=== PATIENT | male | born 1945 | race Caucasian/White ===

== ENCOUNTER 2018-01-07 12:17 | Inpatient (IN) | payer MEDICARE ==
[2018-01-07 13:09] LABS: #Basophils 0.1 thou/uL (0.0-0.2); #Eosinphils 0.3 thou/uL (0.0-0.7); #Lymphocytes 1.1 thou/uL (1.20-3.40); #Monocytes 0.6 thou/uL (0.11-0.59); #Neutrophils 5.1 thou/uL (1.40-6.50); %Basophils 0.8 % (0.0-1.0); %Eosinophils 4.8 % (0.0-10.0); %Lymphocytes 14.7 % (21.0-51.0); %Monocytes 8.8 % (0.0-10.0); %Neutrophils 70.9 % (42.0-75.0); Hemoglobin 14.1 g/dL (14.0-18.0); Mean Corpuscular HGB CONC 31.5 g/dL (32.0-36.0); Mean Corpuscular Hemoglobin 32.1 pg (27.0-31.0); Mean Corpuscular Volume 101.9 fL (78.0-98.0); Mean Platelet Volume 7.4 fL (7.4-10.4); Platelet Count 129 thou/uL (130-400); RBC Distribution Width 13.5 % (11.5-14.5); Red Blood Cell (RBC) Count 4.39 mill/uL (4.70-6.10); White Blood Cell (WBC) Count 7.1 thou/uL (4.8-10.8)
--- NOTE | 2018-01-07 13:13 | RAD ---
PORTABLE AP CHEST XRAY: DATE: 01/07/18. HISTORY: Dyspnea. COMPARISON: 07/27/11. FINDINGS: Dual-lead left subclavian cardiac pacemaking device is noted in place. The patient is rotated to the right accentuating the cardiac silhouette and mediastinal structures. Pulmonary vasculature is with in normal limits and the lungs are clear. IMPRESSION: Limited exam due to patient rotation; no acute cardiopulmonary process is identified. POS: [facility]
[2018-01-07 13:27] LABS: ALT (SGPT) 12 U/L (8-55); AST (SGOT) 11 U/L (5-34); Albumin 4.1 g/dL (3.4-4.8); Alkaline Phosphatase 54 U/L (40-150); Anion Gap 13 mmol/L (10-20); BUN (Urea Nitrogen) 22 mg/dL (8.4-25.7); Bilirubin, Total 0.6 mg/dL (0.2-1.2); Calc. Creatinine Clearance 0 mL/min (70-130); Calcium 9.4 mg/dL (7.8-10.44); Carbon Dioxide 31 mmol/L (23-31); Chloride 105 mmol/L (98-107); Estimated GFR-MDRD 87; Globulin 2.6 g/dL (2.4-3.5); Glucose 134 mg/dL (83-110); Lipase 114 U/L (8-78); Potassium 4.7 mmol/L (3.5-5.1); Protein, Total 6.7 g/dL (5.8-8.1); Sodium 144 mmol/L (136-145)
[2018-01-07 15:34] VITALS: BMI 39.6
[2018-01-07] MEDS ORDERED: Enoxaparin Sodium 40 MG/0.4 ML SYRINGE SC SCH (15:44)
[2018-01-07] MEDS ORDERED: Ondansetron ODT 4 MG TAB PO PRN (15:44)
[2018-01-07] MEDS ORDERED: Acetaminophen 325 MG TAB PO PRN (15:44)
[2018-01-07] MEDS ORDERED: Nitroglycerin 0.4 MG TAB (25 Tab Bottle) SL PRN (16:52)
[2018-01-07] MEDS: Glimepiride 2 MG TAB PO SCH (17:55)
--- NOTE | 2018-01-07 19:44 | RAD ---
RIGHT SHOULDER THREE VIEWS: HISTORY: Right shoulder pain after fall. COMPARISON: None. FINDINGS: Three views of the right shoulder show no evidence of acute fracture or dislocation. There are moder ate degenerative changes in the glenohumeral and acromioclavicular joints. The visualized right thor ax is unremarkable. IMPRESSION: Mild right shoulder arthritis without acute osseous abnormality. POS: [facility]
[2018-01-07] MEDS ORDERED: HumaLOG 300 UNITS/3 ML VIAL SC PRN (19:50)
[2018-01-07] MEDS ORDERED: Dextrose 50% Abboject 50 ML SYRINGE SLOW IVP PRN (19:53)
[2018-01-07] MEDS ORDERED: Dextrose 5% in Water 1,000 ML IV PRN (19:55)
[2018-01-07] MEDS: Atorvastatin Calcium 10 MG TAB PO SCH (20:12)
[2018-01-07] MEDS: Mometasone/Formoterol 60 PUFF AER INH SCH (20:13)
[2018-01-07] MEDS: Furosemide 80 MG TAB PO SCH (20:14)
[2018-01-07] MEDS: Tamsulosin HCl 0.4 MG CAP PO SCH (20:14)
[2018-01-07] MEDS: Carvedilol 6.25 MG TAB PO SCH (20:14)
[2018-01-07] MEDS: Lantus 1000 UNITS/10 ML VIAL SC SCH (20:15)
[2018-01-07] MEDS ORDERED: Lantus 1000 UNITS/10 ML VIAL SC SCH (21:00)
[2018-01-07] MEDS ORDERED: Insulin Glargine 25 UNITS in Pre-Filled Syringe 1 EACH SC SCH (21:00)
[2018-01-07] MEDS: Nicotine 21 MG PATCH TOP SCH (22:37)
[2018-01-07] MEDS: Nystatin Cream 15 GM TUBE TOP SCH (22:39)
--- NOTE | 2018-01-08 00:31 | HP ---
DATE OF ADMISSION: 01/07/2018 ATTENDING: Jasmin Varela M.D. CHIEF COMPLAINT: General weakness. HISTORY OF PRESENT ILLNESS: Mr. Kay is a very pleasant 72-year-old male with multiple chronic medical conditions including diabetes, hypertension, and COPD, CAD, history of [place], history of previous stroke, diastolic dysfunction , congestive heart failure, generalized osteoarthritis and blindness in the right eye. The patient reports that he fell last night at home when he was trying to get up from the chair and his right hand missed the edge of the table accidentally and went down to the floor. He stayed in the floor for about 30 minutes lying on the right side position. He has been complaining of right shoulder pain since. He called his son to pick him up from the floor but reports that his son could not pick him up and he could not move at all. They called the EMS afterwards as is concerned of stroke versus seizures. Patient reports no significant tremors or repetitive jerking at all. The patient did not lose consciousness nor reports blacking out. He could recall every single detail of the incident. The patient reports that after EMS came by and evaluated him, they were told that "there is nothing wrong with him" thus option given not to proceed to the ER for further evaluation. The patient then reports that he rested so well that night, but when he gets up this morning, he was very weak with severe right shoulder pain. He reports that he could hardly move his feet, legs or hands, arms at all. was worried that something is going on with him. called the clinic and the patient was recommended to proceed to the ER for further evaluation. Upon evaluation in the ER, I was told by the ER physician Dr. Olsen that patient has severe deconditioned and general weakness. He has left-sided weakness being from previous CVA, but otherwise would not be able to get up out of the bed without max assist.Patient could hardly make it to the standing position. The patient's baseline status: he could transfer himself and ambulatory with a walker at home. Per ER evaluation, no significant acute stroke symptoms localized paralysis or paraesthesia. Routine blood works were unremarkable. EKG was dual paced, otherwise unremarkable. Due to poor social situation, the patient was deemed to benefit for further therapy and observation in the hospital before going back to the home environment thus admitted. PAST MEDICAL HISTORY: Hypertension; dyslipidemia; CAD; hypothyroid; previous CVA with left residual hemiparesis, COPD; neuropathy; coronary artery disease; myocardial infarction, status post stent placement; [place] x2 treated with pacemaker ; hypertension; diabetes; previous smoker; neuropathic pain; diastolic dysfunction; deviated septum; bilateral carpal tunnel syndrome; PVD; proteinuria ; chronic tobacco abuse; history of testicular cancer, Dr. Cayden Souza in 2015; blind in the right eye; DJD lumbar; restless legs syndrome. PAST SURGICAL HISTORY: Stent in 04/2008, stents 07/29/2011, pacemaker. FAMILY HISTORY: Mother still alive at 89 years of age with lung, heart, high blood pressure. Siblings diagnosed with minor heart problems, cholesterol, diabetes. SOCIAL HISTORY: The patient is . Denies alcohol intake. Chronic smoker for more than 50 years. The patient smokes 2 packs per day. Denies illicit drug use. ALLERGIES: LATEX. REVIEW OF SYSTEMS: General: Denies fever or chills. Reports fatigue, general weakness. HEENT: Denies headaches, acute visual changes or hearing changes or cold symptoms. Respiratory: Reports chronic intermittent shortness of breath and wheezing. Otherwise, no active breathing issues. No sputum production and cough. Cardiovascular: Denies active chest pain, pain with breathing, orthopnea, paroxysmal nocturnal dyspnea, dyspnea on exertion. GI: No nausea, vomiting, abdominal pain, diarrhea or constipation. Genitourinary: No dysuria , hematuria, frequency, urgency. Continent of bowel and bladder. Musculoskeletal: Reports intermittent joint pains. No significant swelling, joint effusion or redness. Positive myalgia. Neuro: As per HPI. LABORATORY DATA AND X-RAY FINDINGS: Chest x-ray negative. A 12 lead EKG: AV dual paced 60 beats per minute, LAD, QRS 162, QTC 508, nonspecific changes. WBC 7.1, hemoglobin 14.1, hematocrit 44.7, MCV 101.9, platelets 129. Chemistry : Sodium 144, potassium 4.7, BUN 22, creatinine 0.86, estimated GFR 87, glucose 134, calcium 19.4. LFTs within normal limits. Troponin less than 0.10. Beta natriuretic 39.9, albumin 4.1, lipase 114. PHYSICAL EXAMINATION: VITAL SIGNS: Blood pressure 149/65, temperature 98.1, pulse 67, respirations 24 , O2 sats 95% at room air, weight 276 pounds and 4 ounces, height 5 feet 10 inches. GENERAL: The patient is awake, alert, oriented x3, not in distress, comfortable in exam. No signs of agony. HEENT: Normocephalic, atraumatic. PERRL intact, EOM. Anicteric sclera. Oral mucosa is moist. NECK: Supple. No LAD, no JVD, no bruit. CHEST: Nonlabored breathing, normal excursion. LUNGS: Good air entry bilaterally. Clear to auscultation bilaterally. No rales, no crackles, no wheezes, no rhonchi. CARDIOVASCULAR: RRR. Normal S1 and S2. No murmurs. ABDOMEN: Obese, soft, normoactive bowel sounds, nondistended, nontender, no rebound, no guarding. Negative CVA tenderness bilaterally. EXTREMITIES: Lower extremities: bipedal edema with chronic skin changes consistent with venous stasis. Dry and scaly. No joint effusions. No joint erythema, no joint swelling. Tender anterior shoulder on direct palpation. Limited range of motion of the right shoulder secondary to discomfort/pain. NEUROLOGIC: DTRs 2+. Nonfocal. Speech is spontaneous. No motor deficits. Gait unsteady. ASSESSMENT AND PLAN: A 72-year-old with history of multiple chronic medical conditions, previous cerebrovascular accident leaving with mild left motor weakness, and unsteady gait. Uses rolling walker for ambulation at home. The patient reports slowly worsening ability to ambulate for the past several months , had a fall yesterday without significant obvious injury noted. Now, he is barely able to walk with a walker, complaining of general weakness and some right shoulder pain. Lab studies were unremarkable. is unable to take care of patient at home at this time, due to apparent higher level of care needed. The patient was admitted for severe deconditioning and general weakness. He needs therapy to improve ambulatory status, gait training, strengthening and exercises to be able to be able to make it back to at least baseline functional status . We will obtain x-ray of the right shoulder to rule out fracture dislocation secondary to acute pain status post fall. PT, OT evaluation and treat. Continue all current medications as modified per list. Accu-Chek q.a.c. and at bedtime. Activate hypoglycemic protocol. DIET: Diabetic, AHA. ACTIVITY: To be determined by PT. Gastrointestinal prophylaxis with Protonix. Deep venous thrombosis prophylaxis with Lovenox. Estimated length of stay 2-3 days, then possibly transition to skilled rehabilitation. CODE STATUS: The patient reports CPR only, DO NOT INTUBATE. MTDD
[2018-01-08] MEDS: Furosemide 80 MG TAB PO SCH ×2 (10:46→17:39)
[2018-01-08] MEDS: Gabapentin 300 MG CAP PO SCH (10:46)
[2018-01-08] MEDS: Levothyroxine Sodium 50 MCG TAB PO SCH (10:46)
[2018-01-08] MEDS: Carvedilol 6.25 MG TAB PO SCH ×2 (10:47→20:09)
[2018-01-08] MEDS: Mometasone/Formoterol 60 PUFF AER INH SCH ×2 (10:47→18:22)
[2018-01-08] MEDS: Spironolactone 25 MG TAB PO SCH (10:47)
[2018-01-08] MEDS: Glimepiride 2 MG TAB PO SCH ×2 (10:47→17:39)
[2018-01-08] MEDS: Nystatin Cream 15 GM TUBE TOP SCH ×2 (10:48→20:11)
[2018-01-08] MEDS: HumaLOG 300 UNITS/3 ML VIAL SC PRN ×2 (13:10→17:15)
[2018-01-08] MEDS: Atorvastatin Calcium 10 MG TAB PO SCH (20:09)
[2018-01-08] MEDS: Tamsulosin HCl 0.4 MG CAP PO SCH (20:10)
[2018-01-08] MEDS: Nicotine 21 MG PATCH TOP SCH (20:12)
[2018-01-08] MEDS: Lantus 1000 UNITS/10 ML VIAL SC SCH (20:17)
[2018-01-08] MEDS ORDERED: Nystatin Cream 15 GM TUBE TOP SCH (21:00)
[2018-01-09] MEDS: Levothyroxine Sodium 50 MCG TAB PO SCH (05:48)
[2018-01-09] MEDS: Mometasone/Formoterol 60 PUFF AER INH SCH ×2 (07:58→18:29)
[2018-01-09] MEDS: Glimepiride 2 MG TAB PO SCH ×2 (08:01→17:09)
[2018-01-09] MEDS: Furosemide 80 MG TAB PO SCH ×2 (08:02→17:10)
[2018-01-09] MEDS: Gabapentin 300 MG CAP PO SCH (08:02)
[2018-01-09] MEDS: Carvedilol 6.25 MG TAB PO SCH ×2 (08:02→20:19)
[2018-01-09] MEDS: Nystatin Cream 15 GM TUBE TOP SCH ×2 (08:03→20:51)
[2018-01-09] MEDS: Spironolactone 25 MG TAB PO SCH (08:04)
[2018-01-09] MEDS: HumaLOG 300 UNITS/3 ML VIAL SC PRN ×2 (08:19→11:29)
[2018-01-09] MEDS ORDERED: Aspirin 325 MG TAB PO SCH (12:00)
[2018-01-09] MEDS: Atorvastatin Calcium 10 MG TAB PO SCH (20:18)
[2018-01-09] MEDS: Tamsulosin HCl 0.4 MG CAP PO SCH (20:19)
[2018-01-09] MEDS: Nicotine 21 MG PATCH TOP SCH (20:20)
[2018-01-09] MEDS: Lantus 1000 UNITS/10 ML VIAL SC SCH (20:32)
[2018-01-10] MEDS: Levothyroxine Sodium 50 MCG TAB PO SCH (07:01)
[2018-01-10] MEDS: Mometasone/Formoterol 60 PUFF AER INH SCH ×2 (08:50→17:28)
[2018-01-10] MEDS: Spironolactone 25 MG TAB PO SCH (08:52)
[2018-01-10] MEDS: Glimepiride 2 MG TAB PO SCH ×2 (08:52→17:28)
[2018-01-10] MEDS: Aspirin 325 MG TAB PO SCH (08:52)
[2018-01-10] MEDS: Gabapentin 300 MG CAP PO SCH (08:52)
[2018-01-10] MEDS: Carvedilol 6.25 MG TAB PO SCH ×2 (08:52→21:34)
[2018-01-10] MEDS: Furosemide 80 MG TAB PO SCH ×2 (08:52→17:28)
[2018-01-10] MEDS: Nystatin Cream 15 GM TUBE TOP SCH ×2 (08:53→21:35)
[2018-01-10] MEDS: HumaLOG 300 UNITS/3 ML VIAL SC PRN (11:30)
[2018-01-10] MEDS: Atorvastatin Calcium 10 MG TAB PO SCH (21:33)
[2018-01-10] MEDS: Nicotine 21 MG PATCH TOP SCH (21:35)
[2018-01-10] MEDS: Lantus 1000 UNITS/10 ML VIAL SC SCH (21:35)
[2018-01-10] MEDS: Tamsulosin HCl 0.4 MG CAP PO SCH (21:36)
[2018-01-11] MEDS: Levothyroxine Sodium 50 MCG TAB PO SCH (06:08)
[2018-01-11] MEDS: Mometasone/Formoterol 60 PUFF AER INH SCH (06:09)
[2018-01-11] MEDS: Glimepiride 2 MG TAB PO SCH (08:59)
[2018-01-11] MEDS: Carvedilol 6.25 MG TAB PO SCH (08:59)
[2018-01-11] MEDS: Aspirin 325 MG TAB PO SCH (08:59)
[2018-01-11] MEDS: Spironolactone 25 MG TAB PO SCH (08:59)
[2018-01-11] MEDS: Furosemide 80 MG TAB PO SCH (09:02)
[2018-01-11] MEDS: Gabapentin 300 MG CAP PO SCH (09:02)
[2018-01-11] MEDS: Nystatin Cream 15 GM TUBE TOP SCH (09:03)
[2018-01-11 11:46] VITALS: BP 138/62; TEMP 97.1
== END 2018-01-11 12:52 | disposition swing bed (61) | DRG 948 ==
LOC: MADERS 12:17 → MADMS 14:29
PROVIDERS: ADMIT Family Medicine; ATTEND Family Medicine
DX: R53.1 Weakness (principal); I50.32 Chronic diastolic (congestive) heart failure; I69.354 Hemiplegia and hemiparesis following cerebral infarction affecting left non-dominant side; E11.9 Type 2 diabetes mellitus without complications; J44.9 Chronic obstructive pulmonary disease, unspecified; I25.10 Atherosclerotic heart disease of native coronary artery without angina pectoris; I25.2 Old myocardial infarction; I11.0 Hypertensive heart disease with heart failure; M19.90 Unspecified osteoarthritis, unspecified site; H54.40 Blindness, one eye, unspecified eye; E78.5 Hyperlipidemia, unspecified; Z95.0 Presence of cardiac pacemaker; F17.210 Nicotine dependence, cigarettes, uncomplicated; Z85.47 Personal history of malignant neoplasm of testis; M47.896 Other spondylosis, lumbar region; Z91.81 History of falling; Z66 Do not resuscitate; M25.511 Pain in right shoulder
CPT/HCPCS: 36415; 36416; 71045; 80053; 83690; 83880; 84484; 85025; 93005; 94664; G8987-GO-CM; G8988-GO-CI; J1650; J1815

== ENCOUNTER 2018-01-11 13:10 | Inpatient (IN) | payer MEDICARE ==
[2018-01-11] MEDS: HumaLOG 300 UNITS/3 ML VIAL SC PRN ×2 (13:10→18:54)
[2018-01-11 13:33] VITALS: BMI 39.6
[2018-01-11] MEDS ORDERED: Nitroglycerin 0.4 MG TAB (25 Tab Bottle) SL PRN (15:37)
[2018-01-11] MEDS ORDERED: Ondansetron ODT 4 MG TAB PO PRN (15:37)
[2018-01-11] MEDS ORDERED: Dextrose 50% Abboject 50 ML SYRINGE SLOW IVP PRN (15:40)
[2018-01-11] MEDS ORDERED: Dextrose 5% in Water 1,000 ML IV PRN (15:40)
[2018-01-11] MEDS: Nicotine 21 MG PATCH TOP SCH (17:11)
[2018-01-11] MEDS ORDERED: Glimepiride 2 MG TAB PO SCH ×2 (17:15→18:00)
[2018-01-11] MEDS: Mometasone/Formoterol 60 PUFF AER INH SCH (18:54)
[2018-01-11] MEDS ORDERED: Mometasone/Formoterol 60 PUFF AER INH SCH (19:00)
[2018-01-11] MEDS: Atorvastatin Calcium 10 MG TAB PO SCH (22:00)
[2018-01-11] MEDS: Carvedilol 6.25 MG TAB PO SCH (22:01)
[2018-01-11] MEDS: Furosemide 80 MG TAB PO SCH (22:01)
[2018-01-11] MEDS: Lantus 1000 UNITS/10 ML VIAL SC SCH (22:02)
[2018-01-11] MEDS: Nystatin Cream 15 GM TUBE TOP SCH (22:03)
[2018-01-11] MEDS: Tamsulosin HCl 0.4 MG CAP PO SCH (22:04)
[2018-01-12] MEDS: Levothyroxine Sodium 50 MCG TAB PO SCH (05:06)
[2018-01-12] MEDS: Mometasone/Formoterol 60 PUFF AER INH SCH ×2 (06:02→18:33)
[2018-01-12] MEDS: Aspirin 325 mg Enteric Coated Tablet PO SCH (08:52)
[2018-01-12] MEDS: Spironolactone 25 MG TAB PO SCH (08:52)
[2018-01-12] MEDS: Gabapentin 300 MG CAP PO SCH (08:52)
[2018-01-12] MEDS: Glimepiride 2 MG TAB PO SCH ×2 (08:52→16:28)
[2018-01-12] MEDS: Carvedilol 6.25 MG TAB PO SCH ×2 (08:52→21:03)
[2018-01-12] MEDS: Furosemide 80 MG TAB PO SCH ×2 (08:52→21:03)
[2018-01-12] MEDS: Enoxaparin Sodium 40 MG/0.4 ML SYRINGE SC SCH (08:52)
[2018-01-12] MEDS: Nystatin Cream 15 GM TUBE TOP SCH ×2 (08:53→21:04)
[2018-01-12] MEDS: Nicotine 21 MG PATCH TOP SCH (16:28)
[2018-01-12] MEDS: Atorvastatin Calcium 10 MG TAB PO SCH (21:03)
[2018-01-12] MEDS: Lantus 1000 UNITS/10 ML VIAL SC SCH (21:04)
[2018-01-12] MEDS: Tamsulosin HCl 0.4 MG CAP PO SCH (21:05)
[2018-01-12] MEDS: HumaLOG 300 UNITS/3 ML VIAL SC PRN (21:07)
[2018-01-13] MEDS: Acetaminophen 325 MG TAB PO PRN (00:26)
[2018-01-13] MEDS: Levothyroxine Sodium 50 MCG TAB PO SCH (05:06)
[2018-01-13] MEDS: Mometasone/Formoterol 60 PUFF AER INH SCH ×2 (06:16→19:28)
[2018-01-13] MEDS: Glimepiride 2 MG TAB PO SCH ×2 (07:33→16:59)
[2018-01-13] MEDS: Enoxaparin Sodium 40 MG/0.4 ML SYRINGE SC SCH (08:40)
[2018-01-13] MEDS: Furosemide 80 MG TAB PO SCH ×2 (08:41→16:59)
[2018-01-13] MEDS: Gabapentin 300 MG CAP PO SCH (08:41)
[2018-01-13] MEDS: Aspirin 325 mg Enteric Coated Tablet PO SCH (08:41)
[2018-01-13] MEDS: Nystatin Cream 15 GM TUBE TOP SCH ×2 (08:41→21:03)
[2018-01-13] MEDS: Carvedilol 6.25 MG TAB PO SCH ×2 (08:41→21:02)
[2018-01-13] MEDS: Spironolactone 25 MG TAB PO SCH (08:41)
[2018-01-13] MEDS: HumaLOG 300 UNITS/3 ML VIAL SC PRN ×2 (11:41→21:04)
[2018-01-13] MEDS: Nicotine 21 MG PATCH TOP SCH (16:23)
[2018-01-13] MEDS: Lantus 1000 UNITS/10 ML VIAL SC SCH (21:02)
[2018-01-13] MEDS: Atorvastatin Calcium 10 MG TAB PO SCH (21:02)
[2018-01-13] MEDS: Tamsulosin HCl 0.4 MG CAP PO SCH (21:03)
[2018-01-14] MEDS: Mometasone/Formoterol 60 PUFF AER INH SCH ×2 (06:17→18:26)
[2018-01-14] MEDS: Levothyroxine Sodium 50 MCG TAB PO SCH (06:17)
[2018-01-14] MEDS: Aspirin 325 mg Enteric Coated Tablet PO SCH (08:30)
[2018-01-14] MEDS: Carvedilol 6.25 MG TAB PO SCH ×2 (08:30→20:21)
[2018-01-14] MEDS: Glimepiride 2 MG TAB PO SCH ×2 (08:30→16:43)
[2018-01-14] MEDS: Enoxaparin Sodium 40 MG/0.4 ML SYRINGE SC SCH (08:30)
[2018-01-14] MEDS: Spironolactone 25 MG TAB PO SCH (08:31)
[2018-01-14] MEDS: HumaLOG 300 UNITS/3 ML VIAL SC PRN ×2 (08:31→20:30)
[2018-01-14] MEDS: Furosemide 80 MG TAB PO SCH ×2 (08:31→18:26)
[2018-01-14] MEDS: Gabapentin 300 MG CAP PO SCH (08:31)
[2018-01-14] MEDS: Nystatin Cream 15 GM TUBE TOP SCH ×2 (08:31→20:22)
[2018-01-14] MEDS: Acetaminophen 325 MG TAB PO PRN (10:03)
[2018-01-14] MEDS: Nicotine 21 MG PATCH TOP SCH (16:43)
[2018-01-14] MEDS: Atorvastatin Calcium 10 MG TAB PO SCH (20:21)
[2018-01-14] MEDS: Tamsulosin HCl 0.4 MG CAP PO SCH (20:22)
[2018-01-14] MEDS: Lantus 1000 UNITS/10 ML VIAL SC SCH (20:29)
[2018-01-15] MEDS: Acetaminophen 325 MG TAB PO PRN (00:18)
[2018-01-15] MEDS: Levothyroxine Sodium 50 MCG TAB PO SCH (05:59)
[2018-01-15] MEDS: Mometasone/Formoterol 60 PUFF AER INH SCH (05:59)
[2018-01-15 07:29] VITALS: BP 134/59; TEMP 96.8
[2018-01-15] MEDS: Spironolactone 25 MG TAB PO SCH (07:43)
[2018-01-15] MEDS: Gabapentin 300 MG CAP PO SCH (07:43)
[2018-01-15] MEDS: Aspirin 325 mg Enteric Coated Tablet PO SCH (07:43)
[2018-01-15] MEDS: Glimepiride 2 MG TAB PO SCH (07:43)
[2018-01-15] MEDS: Carvedilol 6.25 MG TAB PO SCH (07:43)
[2018-01-15] MEDS: Furosemide 80 MG TAB PO SCH (07:43)
[2018-01-15] MEDS: Enoxaparin Sodium 40 MG/0.4 ML SYRINGE SC SCH (07:43)
[2018-01-15] MEDS: Nystatin Cream 15 GM TUBE TOP SCH (07:44)
--- NOTE | 2018-01-16 10:30 | DIS ---
DATE OF ADMISSION: 01/07/2018 DATE OF DISCHARGE: 01/15/2018 ATTENDING PHYSICIAN: Dr. Varela. REASON FOR ADMISSION: Severe debility /general weakness/could not move at all FINAL DIAGNOSES: 1. Severe debility/general weakness, improved. 2. Status post fall at home. 3. Acute right shoulder pain/strain. 4. Osteoarthritis of the right shoulder. 5. Unsteady gait, uses rolling walker. 6. Diabetes type 2, insulin-requiring. 7. Hypertension. 8. Chronic obstructive pulmonary disease. 9. Hypothyroidism. 10. Coronary artery disease. 11. Dyslipidemia. 12. Previous cerebrovascular accident with left residual hemiparesis. 13. Neuropathy. 14. Chronic tobacco use. 15. Morbid obesity. DISPOSITION: Home. CONDITION ON DISCHARGE: Stable. HOME MEDICATIONS: 1. Aspirin 325 mg p.o. daily. 2. Atorvastatin 20 mg p.o. at bedtime. 3. Carvedilol 6.25 mg p.o. b.i.d. 4. Furosemide 80 mg p.o. b.i.d. 5. Gabapentin 300 mg p.o. daily. 6. Glimepiride 2 mg p.o. b.i.d. 7. Lantus 25 subcutaneous at bedtime. 8. Levothyroxine 50 mcg p.o. daily. 9. Dulera 100 mcg/5 mcg inhaler 2 puffs b.i.d. p.r.n. 10. Nitroglycerin 0.4 mg sublingual every 5 minutes p.r.n. for chest pain. 11. Spironolactone 25 mg p.o. daily. 12. Tamsulosin 0.4 mg p.o. daily. 13. Acetaminophen 650 mg p.o. q.6 hours. DIET: Low-fat, 2200 kilocalorie. ACTIVITIES: To use rolling walker at all times. Fall/safety precautions/ preventions. FOLLOW UP: With Dr. Varela in 1-2 weeks, sooner with concerns. Continue Accu-Chek monitoring at home. To resume home health services for nursing home, PT, OT with [facility] Home health per request. HISTORY OF PRESENT ILLNESS AND HOSPITAL COURSE: Mr. Thomas is a 72-year-old male with multiple chronic medical conditions including diabetes, hypertension, COPD, CAD, previous stroke, diastolic dysfunction, congestive heart failure, generalized osteoarthritis, and blindness of the right eye and morbid obesity. Patient lives with . He uses rolling walker for unsteady gait secondary to residual unilateral hemiparesis from previous stroke. Patient fell a night before the admission when he was trying to get up from the chair and his right hand missed the edge of the table. He accidentally fell down to the floor and stayed in the floor on his right shoulder for about 30 minutes, before he was able to get some help. He called his son who lives nearby and reports that son could hardly pick the patient up himself, so they called the EMS. There was a concern of possible seizure versus stroke as per . When the EMS evaluated the patient, EMS reports the patient is doing well. There was no apparent injury or significant symptoms that warrant immediate attention at that point. The family was given the option to stay home versus to proceed to the ER for further evaluation if they are not comfoatable. Patient opted to stay home and slept well overnight. The next morning, patient was unable to move any part of his body secondary to general weakness. Patient was sent back to the ER, where further evaluation was unremarkable except for findings of severe debility, needing further therapy. Due to social situation, could hardly take care of the patient at home, thus he was admitted in [facility] for further observation and rehabilitation. Patient's overall functional status improved in a very slow manner. He was extended after 3 days in acute stay and progressively improved in his overall strength with skilled rehab. He was walking 150 feet using rolling walker with contact guard assist. Per therapist, he remains to have an uneven gait/ foot clearance and flexed posture with decreased endurance, balance , and strength. His overall exercise tolerance is poor. He easily gets worn out. He remains poor balance upon standing. On 01/15/2018, patient was adamant to go home, thus discharged. His overall rehabilitation goal was not completely met, recommending to continue rehab at home via home health. Vital signs prior to discharge, blood pressure 138/62, pulse 63, respiratory rate 18, O2 sats 91%-94% at room air, temperature 97.1, weight 276 pounds and 4 ounces, height 5 feet 10 inches. Chest x-ray on 01/07/2018, limited exam due to patient rotation, no acute cardiopulmonary process was identified. Shoulder x-ray on 01/07/2018, mild right shoulder arthritis without acute osseous abnormality. CBC on 01/07/2018, WBC 7.1, hemoglobin 14.1, hematocrit 44.7, platelets 129. Chemistry on 2017: Sodium 144, potassium 4.7, BUN 22, creatinine 0.86, estimated GFR 87. Liver function enzymes within normal limits. Troponin 1 less than 0.10. Beta natriuretic peptide 39.9, albumin 4.1. MTDD
== END 2018-01-15 13:51 | disposition home health service (06) | DRG 948 ==
LOC: MADMS 13:10
PROVIDERS: ADMIT Family Medicine; ATTEND Family Medicine
DX: R53.1 Weakness (principal); I69.354 Hemiplegia and hemiparesis following cerebral infarction affecting left non-dominant side; I50.32 Chronic diastolic (congestive) heart failure; M25.511 Pain in right shoulder; M19.011 Primary osteoarthritis, right shoulder; R26.81 Unsteadiness on feet; Z79.4 Long term (current) use of insulin; J44.9 Chronic obstructive pulmonary disease, unspecified; E03.9 Hypothyroidism, unspecified; I25.10 Atherosclerotic heart disease of native coronary artery without angina pectoris; E78.5 Hyperlipidemia, unspecified; E11.40 Type 2 diabetes mellitus with diabetic neuropathy, unspecified; E66.01 Morbid (severe) obesity due to excess calories; I11.0 Hypertensive heart disease with heart failure; H54.61 Unqualified visual loss, right eye, normal vision left eye; Z68.37 Body mass index [BMI] 37.0-37.9, adult; I25.2 Old myocardial infarction; Z87.891 Personal history of nicotine dependence; J34.2 Deviated nasal septum
CPT/HCPCS: 36416; 94664; G8984-GO-CK; G8985-GO-CI; J1650

== ENCOUNTER 2018-08-01 07:44 | Emergency (ER) | payer MEDICARE ==
[~2018-08-01 07:44] MED LIST: Sodium Chloride 0.9% 100 ML BAG ONE; cefTRIAXone\\ROCEPHIN 1 GM VIAL ONE
[2018-08-01 08:26] LABS: #Basophils 0.1 thou/uL (0.0-0.2); #Eosinphils 0.2 thou/uL (0.0-0.7); #Monocytes 0.6 thou/uL (0.11-0.59); #Neutrophils 5.4 thou/uL (1.40-6.50); %Basophils 1.2 % (0.0-1.0); %Eosinophils 3.1 % (0.0-10.0); %Lymphocytes 13.7 % (21.0-51.0); %Monocytes 7.9 % (0.0-10.0); %Neutrophils 74.2 % (42.0-75.0); Hemoglobin 14.4 g/dL (14.0-18.0); Mean Corpuscular HGB CONC 31.4 g/dL (32.0-36.0); Mean Corpuscular Hemoglobin 31.4 pg (27.0-31.0); Mean Corpuscular Volume 100.1 fL (78.0-98.0); Mean Platelet Volume 7.6 fL (7.4-10.4); Platelet Count 129 thou/uL (130-400); RBC Distribution Width 13.5 % (11.5-14.5); Red Blood Cell (RBC) Count 4.58 mill/uL (4.70-6.10); White Blood Cell (WBC) Count 7.3 thou/uL (4.8-10.8)
[2018-08-01 08:46] LABS: ALT (SGPT) 13 U/L (8-55); AST (SGOT) 22 U/L (5-34); Alkaline Phosphatase 61 U/L (40-150); Anion Gap 13 mmol/L (10-20); BUN (Urea Nitrogen) 11 mg/dL (8.4-25.7); CK (CPK) 347 U/L (30-200); Calc. Creatinine Clearance 0 mL/min (70-130); Calcium 9.3 mg/dL (7.8-10.44); Carbon Dioxide 33 mmol/L (23-31); Chloride 101 mmol/L (98-107); Estimated GFR-MDRD 88; Globulin 2.5 g/dL (2.4-3.5); Glucose 119 mg/dL (83-110); Potassium 4.7 mmol/L (3.5-5.1); Protein, Total 6.5 g/dL (5.8-8.1); Sodium 142 mmol/L (136-145)
--- NOTE | 2018-08-01 08:51 | RAD ---
FEXAM:AP pelvis HISTORY: Fall with pelvic pain COMPARISON: 07/26/2013 study FINDINGS:The pelvic ring appears intact. No evidence of fracture. Moderate vascular calcifications ar e seen. SI joints are symmetric. No diastases of the symphysis. IMPRESSION:Negative AP pelvis.
--- NOTE | 2018-08-01 09:05 | RAD ---
FEXAM:Portable chest HISTORY: Altered mental status. Syncope. COMPARISON: 01/07/2018 study FINDINGS:Heart size is enlarged with a pacemaker present. The lungs are clear of infiltrates. There a re no signs of failure. IMPRESSION:Cardiomegaly with transvenous pacemaker in place.
--- NOTE | 2018-08-01 09:06 | CT ---
FCT Brain WO Con: 08/01/2018 8:19 AM CLINICAL HISTORY: Altered mental status with fall. COMPARISON: None. FINDINGS: Hemorrhage: None. Ventricular system: Mild ex vacuo dilatation of right lateral ventricle. Cerebral parenchyma: Moderate encephalomalacia of the posterior right cerebral hemisphere, superimpos ed upon microvascular ischemic disease Midline shift: None. Calvarium: Normal. Visualized Paranasal sinuses: Clear. IMPRESSION: Chronic ischemic findings, without acute hemorrhage or mass effect
[2018-08-01] MEDS ORDERED: Iopamidol 370 76% 125 ML VIAL FS ONE (09:26)
--- NOTE | 2018-08-01 10:31 | CT ---
CT ANGIOGRAM CHEST WITH CONTRAST: Date: 08/01/18 HISTORY: Altered mental status. Hypoxia. COMPARISON: Radiograph same date. FINDINGS: CT angiogram of the chest performed after the intravenous administration of contrast. 3D rendering is provided. There is no proximal segmental pulmonary arterial filling defect. No pericardial effusion. There is m ild left ventricular hypertrophy. No aneurysmal dilatation of the aorta. Moderate atherosclerotic plaque. Mild bilateral gynecomastia. No mediastinal adenopathy. The thyroid is unremarkable. There is focal dilatation of the aorta at the level of the diaphragmatic hiatus measuring up to 3.7 c m. 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 Superior mesenteric artery is patent. Bilateral adrenal gland hypertrophy. Lungs are clear. No pneumothorax. No effusion. No focal air spac e consolidation. No acute displaced rib fracture. IMPRESSION: 1. No proximal segmental pulmonary arterial filling defect. 2. Mild dilatation of the distal thoracic aorta at the level of the diaphragm measuring 3.7 cm with a focal ulcerative plaque. Patient is at risk for a penetrating atherosclerotic ulcer. Nonemergency v ascular surgical consultation is advised. 3. 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 4. Adrenal gland bilateral symmetric hyperplasia. 5. No evidence for pulmonary edema or focal consolidation/pneumonia. POS: [facility]
[2018-08-01 10:56] LABS: Bilirubin Negative (Negative); Blood, Urine Moderate (Negative); Clarity Clear (Clear); Glucose, Urine (Dipstick) Negative (Negative); Leukocyte Trace (Negative); Nitrite Negative (Negative); Protein, Urine (Dipstick) 100 mg/dL (Neg-Trace); Specific Gravity, Urine 1.015 (1.005-1.030); Urobilinogen 0.2 mg/dL (0.2-1.0); pH, Urine 7.5 (5.0-9.0)
[2018-08-01 10:59] LABS: Bacteria/HPF Rare-Few HPF (None Seen); Squamous Epithelial 0-3 HPF (0-3)
[2018-08-01 11:02] LABS: Amphetamine Not Detected (NotDetected); Barbiturates Screen Not Detected (NotDetected); Benzodiazepine Screen Not Detected (NotDetected); Cocaine Metabolite Screen Not Detected (NotDetected); Medtox Control Line Valid? VALID (VALID); Methadone Not Detected (NotDetected); Methamphetamine Not Detected (NotDetected); Opiate Screen Not Detected (NotDetected); Oxycodone Screen Not Detected (NotDetected); Phencyclidine (PCP) Not Detected (NotDetected); THC/Cannabinoid Screen Not Detected (NotDetected); Tricyclic Screen Not Detected (NotDetected)
[2018-08-01] MEDS ORDERED: Ondansetron ODT 4 MG TAB ONE (12:03)
== END 2018-08-01 14:47 | disposition short-term general hospital (02) ==
LOC: MADERS 07:44
DX: N39.0 Urinary tract infection, site not specified (principal); R53.1 Weakness; I10 Essential (primary) hypertension; J44.9 Chronic obstructive pulmonary disease, unspecified; I25.10 Atherosclerotic heart disease of native coronary artery without angina pectoris; I25.2 Old myocardial infarction; E11.40 Type 2 diabetes mellitus with diabetic neuropathy, unspecified; Z79.82 Long term (current) use of aspirin; Z79.899 Other long term (current) drug therapy; Z79.4 Long term (current) use of insulin
CPT/HCPCS: 51701; 70450; 71045; 71275; 72170; 80053; 80306; 81003; 81015; 82550; 83880; 84484; 85025; 87077; 87086; 87186; 93005; 94760; 96365; J0696; J7050; Q0162; Q9967

== ENCOUNTER 2019-07-28 04:42 | Emergency (ER) | payer MEDICARE | END 2019-07-28 05:49 | disposition home or self-care (01) | LOC: MADERS 04:42 | DX: Z00.00 Encounter for general adult medical examination without abnormal findings (principal); E03.9 Hypothyroidism, unspecified; J44.9 Chronic obstructive pulmonary disease, unspecified; I25.10 Atherosclerotic heart disease of native coronary artery without angina pectoris; E11.40 Type 2 diabetes mellitus with diabetic neuropathy, unspecified; I25.2 Old myocardial infarction; I10 Essential (primary) hypertension; Z86.73 Personal history of transient ischemic attack (TIA), and cerebral infarction without residual deficits; F17.210 Nicotine dependence, cigarettes, uncomplicated; Z79.82 Long term (current) use of aspirin; Z79.899 Other long term (current) drug therapy; Z79.4 Long term (current) use of insulin; Z79.51 Long term (current) use of inhaled steroids | CPT/HCPCS: 99283 ==

== ENCOUNTER 2019-09-09 14:01 | Emergency (ER) | payer MEDICARE ==
[2019-09-09 14:19] LABS: #Basophils 0.1 thou/uL (0.0-0.2); #Eosinphils 0.3 thou/uL (0.0-0.7); #Lymphocytes 1.1 thou/uL (1.20-3.40); #Monocytes 0.5 thou/uL (0.11-0.59); #Neutrophils 2.9 thou/uL (1.40-6.50); %Basophils 1.5 % (0.0-1.0); %Eosinophils 5.2 % (0.0-10.0); %Lymphocytes 23.1 % (21.0-51.0); %Neutrophils 60.3 % (42.0-75.0); Hemoglobin 14.5 g/dL (14.0-18.0); Mean Corpuscular HGB CONC 31.3 g/dL (32.0-36.0); Mean Corpuscular Hemoglobin 32.2 pg (27.0-31.0); Mean Corpuscular Volume 102.8 fL (78.0-98.0); Mean Platelet Volume 8.4 fL (7.4-10.4); Platelet Count 160 thou/uL (130-400); RBC Distribution Width 13.9 % (11.5-14.5); Red Blood Cell (RBC) Count 4.49 mill/uL (4.70-6.10); White Blood Cell (WBC) Count 4.8 thou/uL (4.8-10.8)
[2019-09-09 14:25] LABS: Prothrombin Time 12.7 sec (12.0-14.7)
[2019-09-09 14:37] LABS: ALT (SGPT) 12 U/L (8-55); AST (SGOT) 13 U/L (5-34); Albumin 4.2 g/dL (3.4-4.8); Alkaline Phosphatase 55 U/L (40-110); Anion Gap 12 mmol/L (10-20); BUN (Urea Nitrogen) 16 mg/dL (8.4-25.7); Bilirubin, Total 0.5 mg/dL (0.2-1.2); Calc. Creatinine Clearance 0 mL/min (70-130); Calcium 9.1 mg/dL (7.8-10.44); Carbon Dioxide 32 mmol/L (23-31); Chloride 103 mmol/L (98-107); Estimated GFR-MDRD 81; Globulin 2.9 g/dL (2.4-3.5); Glucose 138 mg/dL (83-110); Potassium 4.3 mmol/L (3.5-5.1); Protein, Total 7.1 g/dL (5.8-8.1); Sodium 143 mmol/L (136-145)
[2019-09-09] MEDS ORDERED: Aspirin 325 MG TAB ONE (14:50)
--- NOTE | 2019-09-09 14:58 | CT ---
CT BRAIN NONCONTRAST: DATE: 09/09/2019 2:26 PM HISTORY: 74-year-old male with acute stroke symptoms: Dysarthria. Now resolved consistent with TIA Dr. Tomlin discussed this stroke alert protocol report by telephone with Dr. Diamond at 2:47 PM 09/09/2019 COMPARISON: 08/01/2018 FINDINGS: Again noted is the moderate size region of encephalomalacia and gliosis in the upper portion of the r ight parietal lobe in the right MCA territory. There is a moderately long strip of low intra-axial attenuation in the right paramedian upper frontal lobe, including right superior frontal gyrus, consistent with infarction in right JENNI territory. It was not present on the previous CT. Tiny old lacunar infarction at right caudate head, unchanged. No obstructive hydrocephalus, acute intra-axial or extra-axial hemorrhage, mass effect, midline shift , or extra-axial fluid collection. Calvarium is intact. IMPRESSION: 1) small to moderate-sized infarction in right anterior cerebral artery territory which occurred some time after the previous CT of 08/01/2018. Uncertain whether this is old or subacute. 2) moderate-sized old infarction in right middle cerebral artery territory. 3) no acute hemorrhage
--- NOTE | 2019-09-09 15:39 | RAD ---
EXAM: CHEST ONE VIEW PORTABLE: 09/09/19 HISTORY: Dyspnea. COMPARISON: 08/01/18. FINDINGS: Left ICD. Heart size is within normal limits. The lungs are clear of acute process. No pneumonia, ollie ma, or pleural effusion. IMPRESSION: No significant acute intrathoracic disease. Stable from prior study. POS: [facility]
== END 2019-09-09 15:32 | disposition short-term general hospital (02) ==
LOC: MADERS 14:01
DX: G45.9 Transient cerebral ischemic attack, unspecified (principal); E11.40 Type 2 diabetes mellitus with diabetic neuropathy, unspecified; I25.2 Old myocardial infarction; E03.9 Hypothyroidism, unspecified; J44.9 Chronic obstructive pulmonary disease, unspecified; I10 Essential (primary) hypertension; Z79.82 Long term (current) use of aspirin; Z79.4 Long term (current) use of insulin; Z79.899 Other long term (current) drug therapy; Z86.73 Personal history of transient ischemic attack (TIA), and cerebral infarction without residual deficits; Z87.891 Personal history of nicotine dependence; Z79.891 Long term (current) use of opiate analgesic
CPT/HCPCS: 36416; 70450; 71045; 80053; 84443; 84484; 85025; 85610; 93005